=== PATIENT | male | born 1960 | race African-American/Black ===

== ENCOUNTER 2019-10-09 11:41 | Emergency (ER) | payer OTHER ==
--- NOTE | 2019-10-09 12:13 | RADIOLOGY REPORT (SQ) ---
EXAM DESCRIPTION: CHEST SINGLE VIEW IMAGES COMPLETED DATE/TIME: 10/09/2019 12:05 pm REASON FOR STUDY: bed 12 chest pains COMPARISON: None. EXAM PARAMETERS: NUMBER OF VIEWS: One view. TECHNIQUE: Single frontal radiographic view of the chest acquired. RADIATION DOSE: NA LIMITATIONS: None. FINDINGS: LUNGS AND PLEURA: No opacities, masses or pneumothorax. No pleural effusion. MEDIASTINUM AND HILAR STRUCTURES: No masses. Contour normal. HEART AND VASCULAR STRUCTURES: Heart normal in size. Normal vasculature. BONES: No acute findings. HARDWARE: None in the chest. OTHER: No other significant finding. IMPRESSION: NO ACUTE RADIOGRAPHIC FINDING IN THE CHEST. TECHNICAL DOCUMENTATION: JOB ID: [id number] [employer]- All Rights Reserved Reading location - IP/workstation name: [email or web address]
[2019-10-09 12:21] LABS: ABSOLUTE LYMPHOCYTES (AUTO) 0.8 10^3/uL (0.5-4.7); ABSOLUTE MONOCYTES (AUTO) 0.4 10^3/uL (0.1-1.4); ABSOLUTE NEUT (AUTO) 3.3 10^3/uL (1.7-8.2); BASOPHILS % (AUTO) 0.6 % (0-2); EOSINOPHILS % (AUTO) 0.2 % (0-6); HEMATOCRIT 40.9 % (37.9-51.0); LYMPHOCYTES % (AUTO) 16.8 % (13-45); MEAN CORPUSCULAR HEMOGLOBIN 31.6 pg (27.0-33.4); MEAN CORPUSCULAR HGB CONC 34.3 g/dL (32.0-36.0); MEAN CORPUSCULAR VOLUME 92 fl (80-97); MONOCYTES % (AUTO) 9.1 % (3-13); PLATELET COUNT 164 10^3/uL (150-450); RED BLOOD COUNT 4.44 10^6/uL (4.35-5.55); RED CELL DISTRIBUTION WIDTH 12.9 % (11.5-14.0); SEGMENTED NEUTROPHILS % (AUTO) 73.3 % (42-78); TOTAL CELLS COUNTED % (AUTO) 100 %; WHITE BLOOD COUNT 4.6 10^3/uL (4.0-10.5)
[2019-10-09] MEDS ORDERED: MAG HYDROX/AL HYDROX/SIMETH SUSP 30 ML UDCUP PO ONE (12:30)
[2019-10-09] MEDS ORDERED: LIDOCAINE 2% VISCOUS SOLN 15 ML UDCUP PO ONE (12:30)
[2019-10-09] MEDS ORDERED: METOCLOPRAMIDE HCL ORAL SOLN 10 MG/10 ML UDCUP PO ONE (12:30)
[2019-10-09 12:39] LABS: ALBUMIN 4.6 g/dL (3.5-5.0); ALKALINE PHOSPHATASE 63 U/L (38-126); ANION GAP 7 (5-19); ASPARTATE AMINO TRANSFERASE 24 U/L (17-59); BILIRUBIN,TOTAL 0.7 mg/dL (0.2-1.3); BLOOD UREA NITROGEN 7 mg/dL (7-20); CALCIUM 9.1 mg/dL (8.4-10.2); CARBON DIOXIDE 29 mmol/L (22-30); CHLORIDE 105 mmol/L (98-107); CREATINE KINASE 198 U/L (55-170); GLUCOSE 104 mg/dL (75-110); TOTAL PROTEIN 7.3 g/dL (6.3-8.2)
[2019-10-09 12:51] LABS: CREATINE KINASE MB 4.06 ng/mL (<4.55)
[2019-10-09 12:56] LABS: TROPONIN I < 0.012 ng/mL
[2019-10-09] MEDS ORDERED: MECLIZINE HCL 25 MG TABLET PO ONE (13:39)
[2019-10-09 15:24] VITALS: BP 152/106
--- NOTE | 2019-10-09 15:28 | ER Document Report ---
Entered by LUZ MARIA MARTE SCRIBE 10/09/19 1219 Acting as scribe for:OLLIE LIMA MD ED General - General Chief Complaint: Chest Pain Stated Complaint: CHEST PAIN/HEADACHE/NECK PAIN/NAUSEA Time Seen by Provider: 10/09/19 12:01 Information source: Patient Notes: This 59-year-old male presents to the emergency department complaining of near syncope this morning. Patient explains that he "just feels horrible". Patient states that he went to bed at a normal time, slept well throughout the night and woke up feeling normal. Patient said that he began to feel lightheaded, nauseous, a headache, heart palpitations and chest pain. Patient stated that he went to the urgent care this morning and they sent him to this emergency department. Patient states "I feel like I am going to ". Patient denies black stool. Patient mentions that when he looks from side to side he feels dizzy. Patient has a history of a hiatal hernia, ulcer, atrial fibrillation and a DVT. Patient explains that he had similar symptoms and had an endoscopy done three times which diagnosed him with a hiatal hernia and ulcer a year and a half ago. Patient said that he had a DVT 7 months ago due to significant travel. He stated that his atrial fibrillation comes and goes. Past Medical History - General Information source: Patient - Social History Smoking Status: Never Smoker Cigarette use (# per day): No Chew tobacco use (# tins/day): No Frequency of alcohol use: None Drug Abuse: None Family History: Reviewed & Not Pertinent - Past Medical History Cardiac Medical History: Reports: Hx Atrial Fibrillation, Hx DVT - 2019, Hx Hypercholesterolemia, Hx Hypertension GI Medical History: Reports: Hx Hiatal Hernia, Hx Ulcer Surgical Hx: Negative Review of Systems - Review of Systems Constitutional: See HPI. denies: Fever EENT: No symptoms reported Cardiovascular: See HPI, Chest pain, Palpitations, Dizziness, Lightheaded Respiratory: See HPI, Short of breath Gastrointestinal: See HPI, Nausea. denies: Black stools Genitourinary: No symptoms reported Male Genitourinary: No symptoms reported Musculoskeletal: No symptoms reported Skin: No symptoms reported Hematologic/Lymphatic: No symptoms reported Neurological/Psychological: See HPI, Headaches -: Yes All other systems reviewed and negative Physical Exam - Vital signs Vitals: Resp Pulse Ox 13 98 10/09/19 11:57 10/09/19 11:57 - Notes Notes: Physical Exam: General: Alert, appears well. HEENT: Normocephalic. Atraumatic. PERRL. Extraocular movements intact. Oropharynx clear. TMs are bulging bilaterally. Nystagmus noted. Neck: Supple. Non-tender. Respiratory: No respiratory distress. Clear and equal breath sounds bilaterally. Reproducible right-sided chest wall tenderness to palpation. Cardiovascular: Regular rate and rhythm. Abdominal: Normal Inspection. Non-tender. No distension. Normal Bowel Sounds. Back: No gross abnormalities. Extremities: Moves all four extremities. Upper extremities: Normal inspection. Normal ROM. Lower extremities: Normal inspection. No edema. Normal ROM. Neurological: Normal cognition. AAOx4. Normal speech. Psychological: Normal affect. Normal Mood. Skin: Warm. Dry. Normal color. Course - Re-evaluation Re-evalutation: 10/09/19 15:22 Patient resting comfortably states his dizziness and nausea and chest discomfort has improved. - Vital Signs Vital signs: Temp Pulse Resp BP Pulse Ox 98.3 F 23 H 151/111 H 94 10/09/19 12:16 10/09/19 14:01 10/09/19 14:00 10/09/19 14:01 10/09/19 15:22 Vital signs have been stable patient was moving at the time of these vitals shown on this screen at this time. Blood pressure has been repeated. - Laboratory Result Diagrams: 10/09/19 12:07 10/09/19 12:07 Laboratory results interpreted by me: 10/09/19 12:07 Creatine Kinase 198 H Laboratory results shows no acute process troponin x2 is completely normal. - Diagnostic Test Radiology reviewed: Image reviewed, Reports reviewed Radiology results interpreted by me: 10/09/19 15:22 Chest x-ray showed no acute process. - EKG Interpretation by Me Additional EKG results interpreted by mi: 10/09/19 15:23 Twelve-lead EKG shows normal sinus rhythm rate of 60 probable left atrial abnormality no acute process. Discharge - Discharge Clinical Impression: Labyrinthitis of both ears, Hiatal hernia, Chest wall pain, Hypertension, History of atrial fibrillation Condition: Stable Disposition: HOME, SELF-CARE Instructions: Labyrinthitis ([facility]), Chest Wall Pain ([facility]), Reflux Disease (GERD) ([facility]) Prescriptions: Meclizine HCl [Antivert 25 mg Tablet] 25 mg PO TID PRN #21 tablet PRN Reason: Omeprazole 40 mg PO DAILY 30 Days #30 capsule. Metoclopramide HCl [Reglan] 10 mg PO BID PRN #60 tablet PRN Reason: nausea I personally performed the services described in the documentation, reviewed and edited the documentation which was dictated to the scribe in my presence, and it accurately records my words and actions.
--- NOTE | 2019-10-09 21:53 | EKG REPORT ---
SEVERITY:- BORDERLINE ECG - SINUS RHYTHM PROBABLE LEFT ATRIAL ABNORMALITY : Confirmed by: Wandy Allison MD 09-Oct-2019 21:53:01
== END 2019-10-09 15:42 | disposition home or self-care (01) ==
LOC: ER 11:41
DX: H83.03 Labyrinthitis, bilateral (principal); K44.9 Diaphragmatic hernia without obstruction or gangrene; R07.89 Other chest pain; R07.9 Chest pain, unspecified; R51 Headache; M54.2 Cervicalgia; R11.0 Nausea; R42 Dizziness and giddiness; R00.2 Palpitations; I48.91 Unspecified atrial fibrillation; I10 Essential (primary) hypertension
CPT/HCPCS: 93005; 99285; 36415; 82553; 82550; 85025; 80053; 84484; 71045; 93010; J3490